=== PATIENT | female | born 1955 | race Caucasian/White ===

== ENCOUNTER 2022-12-22 06:08 | Emergency (ER) | payer MEDICARE, MEDICAID ==
[~2022-12-22] VITALS: Ht 162.6 cm; Wt 54.0 kg
[2022-12-22] MEDS ORDERED: PIPERACILLIN/TAZ 3.375G PREMIX 50 ML IV ONE (06:15)
[2022-12-22] MEDS ORDERED: VANCOMYCIN 1G PREMIX 200 ML IV ONE (06:15)
[2022-12-22 07:16] VITALS: BP 98/49
== END 2022-12-22 07:44 ==
LOC: ER 06:08
DX: I46.9 Cardiac arrest, cause unspecified (principal); R00.0 Tachycardia, unspecified; N18.6 End stage renal disease; R94.31 Abnormal electrocardiogram [ECG] [EKG]; J98.11 Atelectasis; Z85.43 Personal history of malignant neoplasm of ovary; Z99.2 Dependence on renal dialysis
CPT/HCPCS: 71045; 82962; 92950; 93005; 99285; J2543; J3370